=== PATIENT | male | born 1960 | race Caucasian/White ===

== ENCOUNTER → 2017-06-22 | Outpatient (CLI) | payer BC, OTHER ==
--- NOTE | 2017-06-22 17:34 | PCVCIMAG ---
APPROVED REPORT Exam: Stress Echocardiogram Indication: CAD , Hyperlipidemia, Hypertension Patient Location: Echo lab Stress Nurse: Phuong Rausch RN Room #: 2 Status: routine Ht: 5 ft 6 in HR: 95 bpm BP: 122/74 mmHg Rhythm: Incomplete RBBB Medical History Medical History: CAD non obstructive, HTN, Borderline Hyperlipidemia Cardiac Risk Factors: HTN, Hyperlipidemia Pretest Chest Pain Characteristics: No chest pain Exercise History: Indeterminate Procedure The patient underwent an Exercise Stress Test using the Gaurav Protocol. Blood pressure, heart rate, and EKG were monitored. An Echocardiogram was performed by nuclear reactor technician in four stages in quad fashion. At peak stress, four selected images were obtained and placed side by side with resting images for comparison. Stress Test Details Stress Test: Exercise stress testing was performed using a Gaurav protocol. HR Resting HR: 95 bpmMax Heart Rate (APMHR): 163 bpm Max HR Achieved: 187 bpmTarget HR (85% APMHR): 138 bpm % of APMHR: 114 Recovery HR: 109 bpm HR response to stress: Normal HR response to stress BP Resting BP: 122/74 mmHg Max BP: 200/78 mmHg Recovery BP: 142/60 mmHg ECG Resting ECG: Incomplete RBBB Stress ECG: Incomplete RBBB ST Change: Upsloping ST depression, Non-ischemic Maximum ST Deviation: 0.65 mm Arrhythmia: Rare PVCs Recovery ECG: Sinus Rhythm, Incomplete RBBB Recovery ST Change: Normal Recovery ST Deviation: 0.75 mm Recovery Arrhythmia: None Clinical Reason for Termination: Maximal effort Stress Symptoms: none Exercise duration: 9 min 15 sec Highest Stage Achieved: Stage 4: 4.2 mph at 16% grade. Exercise capacity: 10.9 METs Overall Exercise Capacity for Age: Good Angina Score: None Stress ECG Conclusion The patient exercised according to the Gaurav protocol for 9:15 mins; achieving a work level of 10.9 METS. The resting heart rate of 95 bpm haider to a maximal heart rate of 187 bpm. This value represents 114% of the maximal, age-predicted heart rate. The resting blood pressure of 122/74 mmHg, haider to a maximum of 200/78 mmHg. The exercise test was stopped due to fatigue. Jackson Treadmill Score is 5.8 which is Low risk. Pre-Stress Echo The resting Echocardiogram showed normal left ventricular contractility with an estimated Ejection Fraction of about 55-60%. Normal wall motion in all segments on baseline images. Post-Stress Echo The stress Echocardiogram showed normal left ventricular contractility with an estimated Ejection Fraction of about 60-65%. Normal augmentation of wall motion in all segments on post stress images. Clinical No clinical or ECG evidence for ischemia. Conclusion Clinical Response: Non-ischemic Exercise Capacity: Average Stress ECG Response: Non-ischemic Stress Echo Images: Non-ischemic No clinical, EKG or echocardiographic evidence for ischemia. No echocardiographic evidence for exercise induced ischemia. Normal stress echocardiogram with maximal exercise stress. <Conclusion> No clinical, EKG or echocardiographic evidence for ischemia. No echocardiographic evidence for exercise induced ischemia. Normal stress echocardiogram with maximal exercise stress.
== END | disposition home or self-care (01) ==
LOC: PCVCIMAG 15:12
PROVIDERS: ATTEND Internal Medicine
DX: I25.10 Atherosclerotic heart disease of native coronary artery without angina pectoris (principal); I10 Essential (primary) hypertension; E78.5 Hyperlipidemia, unspecified; I45.10 Unspecified right bundle-branch block; I49.3 Ventricular premature depolarization
CPT/HCPCS: 93325; 93351